=== PATIENT | female | born 1995 | race Caucasian/White ===

== ENCOUNTER 2016-08-30 13:06 | Emergency (ER) | payer BC ==
[2016-08-30] MEDS ORDERED: Amoxicillin 250 MG Cap ONE (13:10)
[2016-08-30 15:08] VITALS: BP 136/63
== END 2016-08-30 13:30 | disposition home or self-care (01) ==
LOC: LB.ED 13:06
DX: H66.91 Otitis media, unspecified, right ear (principal)
CPT/HCPCS: 99282; A9270

== ENCOUNTER 2017-01-19 19:04 | Emergency (ER) | payer SELFPAY ==
[2017-01-19] MEDS ORDERED: Lidocaine 2% Jelly 10 ML Urojet ONE (19:10)
[2017-01-19] MEDS ORDERED: Silver Sulfadiazine 1% Crm 50 GM Tube TOP ONE (19:10)
[2017-01-19] MEDS ORDERED: Ketorolac 60 MG/2 ML SDV IM ONE (19:35)
--- NOTE | 2017-01-19 19:57 | EDM.PDOC ---
ED HPI GENERAL MEDICAL PROBLEM - General Chief Complaint: General Stated Complaint: sunburn Time Seen by Provider: 01/19/17 19:20 Source of Information: Reports: Patient History Limitations: Reports: No Limitations - History of Present Illness INITIAL COMMENTS - FREE TEXT/NARRATIVE: This is a 21yo F with sunburns to the anterior legs. Patient states she was in the sun all day for 9 hours on Thursday. She had to wear pants and cover up today but was tearful and in pain and unable to walk upright due to the skin pain of the knee. Onset: Sudden Duration: Day(s): Location: Reports: Lower Extremity, Left, Lower Extremity, Right Quality: Reports: Ache, Burning Severity: Moderate Improves with: Reports: None Worsens with: Reports: None Associated Symptoms: Reports: No Other Symptoms - Related Data Allergies Allergy/AdvReac Type Severity Reaction Status Date / Time No Known Allergies Allergy Verified 08/30/16 14:57 Home Meds: Home Meds NK [No Known Home Meds] 08/30/16 [History] ED ROS GENERAL - Review of Systems Review Of Systems: ROS reveals no pertinent complaints other than HPI. ED EXAM, GENERAL - Physical Exam Exam: See Below Exam Limited By: No Limitations General Appearance: Alert, WD/WN, Moderate Distress Eye Exam: Bilateral Eye: EOMI Nose: Normal Inspection Throat/Mouth: Normal Inspection Skin Exam: Other (red sunburn area of b/l anterior legs) Course - Re-Assessments/Exams Free Text/Narrative Re-Assessment/Exam: Placed lidocaine jelly on legs for temporary relief. Improvement seen. Departure - Departure Time of Disposition: 20:00 Disposition: Home, Self-Care 01 Condition: Good Clinical Impression: Sunburn of first degree - Discharge Information Instructions: Sunburn, [id number] Referrals: PCP,None [Primary Care Provider] - Forms: ED Department Discharge - Problem List & Annotations (1) Sunburn of first degree SNOMED Code(s): 672935646 Code(s): L55.0 - SUNBURN OF FIRST DEGREE Status: Acute Current Visit: Yes - Problem List Review Problem List Initiated/Reviewed/Updated: Yes - Assessment/Plan Plan: Counseled on supportive therapy and followup as needed for further management. Discussed multiple conservative therapies and given cream for therapy.
[2017-01-19 23:07] VITALS: BP 142/89
== END 2017-01-19 19:50 | disposition home or self-care (01) ==
LOC: LB.ED 19:04
DX: L55.0 Sunburn of first degree (principal)
CPT/HCPCS: 96372; 99282; A9270; J1885

== ENCOUNTER 2017-08-19 03:31 | Emergency (ER) | payer BC ==
[~2017-08-19 03:31] MED LIST: predniSONE 10 MG Tab ONE
[2017-08-19] MEDS: Albuterol/Ipratropium 3.0-0.5 MG/3 ML Neb Soln NEB ONE (03:38)
[2017-08-19 04:33] VITALS: BP 112/63
--- NOTE | 2017-08-19 08:32 | EDM.PDOC ---
ED HPI GENERAL MEDICAL PROBLEM - General Chief Complaint: General Stated Complaint: ASTHMA ATTACK Time Seen by Provider: 08/19/17 03:45 Source of Information: Reports: Patient History Limitations: Reports: No Limitations - History of Present Illness INITIAL COMMENTS - FREE TEXT/NARRATIVE: According to patient she has been wheezing on and off for past 2 days now. She claims that wheezing has got worse. No shortness of breath or air hunger. Pt has had nasal congestion and cold symptoms for few days. No chest pain or chest discomfort. She does have asthma since she was a child.She does use albuterol inhaler as needed. Pt claims over the past 6 months she has been using inhaler at least 1-2 times a week. No fever, chills or productive sputum. No other complaints Onset: Gradual Onset Date: 08/17/17 Duration: Constant Location: Reports: Chest Severity: Moderate Improves with: Reports: None Worsens with: Reports: None Associated Symptoms: Reports: Cough. Denies: Confusion, Chest Pain, Fever/ Chills, Headaches, Nausea/Vomiting, Rash, Seizure, Shortness of Breath, Syncope , Weakness - Related Data Allergies Allergy/AdvReac Type Severity Reaction Status Date / Time dog dander Allergy Intermediate Airway Verified 08/19/17 03:33 Tightness Famous Dez Barbecue Sauce Allergy Airway Uncoded 01/19/17 22:27 Tightness Home Meds: Home Meds Albuterol [IJD: Ventolin HFA] 2 puff INH .TWICE DAILY 08/19/17 [History] Past Medical History HEENT History: Reports: Allergic Rhinitis, Other (See Below) Other HEENT History: hx of ear infections Respiratory History: Reports: Asthma Gastrointestinal History: Reports: Cholelithiasis Dermatologic History: Reports: Other (See Below) Other Dermatologic History: comes to hospital with ! degree sunburn - Past Surgical History Musculoskeletal Surgical History: Reports: Other (See Below) Other Musculoskeletal Surgeries/Procedures:: R elbow fx Social & Family History - Family History Family Medical History: Noncontributory Cardiac: Reports: CT Neurological: Reports: Dementia - Tobacco Use Smoking Status *Q: Current Every Day Smoker Years of Tobacco use: 4 Packs/Tins Daily: 0.5 Used Tobacco, but Quit: No Second Hand Smoke Exposure: No - Caffeine Use Caffeine Use: Reports: Soda - Alcohol Use Days Per Week of Alcohol Use: 5 Number of Drinks Per Day: 1 Total Drinks Per Week: 5 - Recreational Drug Use Recreational Drug Use: No ED ROS GENERAL - Review of Systems Review Of Systems: See Below Constitutional: Denies: Fever, Chills, Weakness, Fatigue HEENT: Reports: Rhinitis. Denies: Ear Pain, Nosebleed, Nose Pain, Throat Pain, Throat Swelling Respiratory: Reports: Wheezing, Cough. Denies: Shortness of Breath, Pleuritic Chest Pain, Sputum Cardiovascular: Denies: Chest Pain, Lightheadedness GI/Abdominal: Denies: Abdominal Pain, Anorexia, Nausea, Vomiting Musculoskeletal: Denies: Joint Pain, Joint Swelling Skin: Denies: Cyanosis, Bruising, Pruritis, Rash Neurological: Denies: Confusion, Dizziness, Headache ED EXAM, GENERAL - Physical Exam Exam: See Below Exam Limited By: No Limitations General Appearance: Alert, WD/WN, No Apparent Distress, Other (maintaining SPO2 above 95% on roomair) Eye Exam: Bilateral Eye: EOMI, PERRL Ears: Normal External Exam, Normal Canal, Hearing Grossly Normal, Normal TMs Ear Exam: Bilateral Ear: Auricle Normal, Canal Normal, TM normal Nose: Normal Inspection, Normal Mucosa, Nasal Drainage (mucoid) Throat/Mouth: Normal Inspection, Normal Lips, Normal Teeth, Normal Gums, Normal Oropharynx, Normal Voice, No Airway Compromise Head: Atraumatic, Normocephalic Neck: Normal Inspection, Supple, Non-Tender, Full Range of Motion Respiratory/Chest: No Respiratory Distress, Normal Breath Sounds, No Accessory Muscle Use, Rhonchi (expiratory heard all over lung powers). No: Crackles, Rales Cardiovascular: Normal Peripheral Pulses, Regular Rate, Rhythm, No Edema, No Gallop, No JVD, No Murmur, No Rub Peripheral Pulses: 2+: Carotid (L), Carotid (R), Radial (L), Radial (R) GI/Abdominal: Normal Bowel Sounds, Soft, Non-Tender, No Organomegaly, No Distention, No Abnormal Bruit, No Mass Extremities: Normal Inspection, Normal Range of Motion, Non-Tender, Normal Capillary Refill, No Pedal Edema Neurological: Alert, Oriented, CN II-XII Intact Course - Vital Signs Text/Narrative:: Pt has legal coordinator episode of wheezing which is consistent with uncontrolled asthma. She did receive Duoneb nebuliser in the emergency room and her wheezing completely resolved. Her SPO2 on room air has been above 95% and is not in any discomfort presently. From her history she has uncontrolled persistent mild to moderate asthma, as she claims she uses 1-2 time wk her inhaler. This episode might have been triggered by her Viral URI. I have started her on tapering dose of prednisone and uses rescue albuterol inhaler. Zyrtec 10mg daily. Advised to followup in the clinic in 1 wk for recheck and management of her Asthma Last Recorded V/S: Last Vital Signs Temp 99.2 F 08/19/17 03:35 Pulse 115 H 08/19/17 03:35 Resp 24 H 08/19/17 03:35 BP 112/63 08/19/17 03:35 Pulse Ox 96 08/19/17 03:35 - Orders/Labs/Meds Meds: Medications Discontinued Medications Generic Name Dose Route Start Last Admin Trade Name Freq PRN Reason Stop Dose Admin Albuterol/Ipratropium 3 ml 08/19/17 03:38 08/19/17 03:38 Duoneb 3.0-0.5 Mg/3 Ml NEB 08/19/17 03:39 3 ml ONETIME ONE Administration Departure - Departure Time of Disposition: 04:15 Disposition: Home, Self-Care 01 Condition: Fair Clinical Impression: Asthma attack, URI (upper respiratory infection) - Discharge Information Instructions: Cetirizine tablets, Prednisone tablets Referrals: PCP,None [Primary Care Provider] - Forms: ED Department Discharge Additional Instructions: Begin taking provided Prednisone as directed this morning with food: 6 tablets day 1, 5 tablets day 2, 4 tablets day 3, 3 tablets day 4, 2 tablets day 5, then 1 tablet on day 1. Also pharmacy picking technician Zyrtec (available over the counter) and begin taking 10 mg daily for 1 week. Follow up in clinic with Dr. Beaver for further treatment and evaluation once you have completed Prednisone taper regimen. Activity as tolerated. Call with any questions. - Problem List & Annotations (1) Asthma attack SNOMED Code(s): 475096621 Code(s): J45.901 - UNSPECIFIED ASTHMA WITH (ACUTE) EXACERBATION Status: Acute (2) URI (upper respiratory infection) SNOMED Code(s): 28044331 Code(s): J06.9 - ACUTE UPPER RESPIRATORY INFECTION, UNSPECIFIED Status: Acute - Problem List Review Problem List Initiated/Reviewed/Updated: Yes - Assessment/Plan Assessment:: Mild asthma exacerbation with URI Plan: Pt has legal coordinator episode of wheezing which is consistent with uncontrolled asthma. She did receive Duoneb nebuliser in the emergency room and her wheezing completely resolved. Her SPO2 on room air has been above 95% and is not in any discomfort presently. From her history she has uncontrolled persistent mild to moderate asthma, as she claims she uses 1-2 time wk her inhaler. This episode might have been triggered by her Viral URI. I have started her on tapering dose of prednisone and uses rescue albuterol inhaler. Zyrtec 10mg daily. Advised to followup in the clinic in 1 wk for recheck and management of her Asthma
== END 2017-08-19 04:12 | disposition home or self-care (01) ==
LOC: LB.ED 03:31
DX: J45.909 Unspecified asthma, uncomplicated (principal); J06.9 Acute upper respiratory infection, unspecified; F17.210 Nicotine dependence, cigarettes, uncomplicated; Z91.048 Other nonmedicinal substance allergy status; Z91.02 Food additives allergy status; Z79.899 Other long term (current) drug therapy
CPT/HCPCS: 99285; A9270; J7620